=== PATIENT | male | born 1960 | race African-American/Black ===

== ENCOUNTER → 2016-08-01 | Outpatient (CLI) | payer BC, MEDICARE ==
[~2016-08-01] MED LIST: AMLO5TAB2 PO; MELO-150 PO; SIMV10TA3 PO; TRIA1CAP3 PO
--- NOTE | 2016-08-01 15:50 | RAD ---
EXAM: Bilateral knees 2 views. HISTORY: Bilateral knee pain. COMPARISON: 01/31/2011. FINDINGS: No fractures are identified bilaterally. Alignment at both knees is maintained. There is no joint effusion bilaterally. There are small osteophytes along both medial compartments and the inferior aspect of both patellas. Joint spaces are maintained. IMPRESSION: 1. 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 This has progressed mildly on the right since 2010.
== END | disposition home or self-care (01) ==
LOC: RAD 12:43
PROVIDERS: ATTEND Physician Assistant Medical
DX: M17.0 Bilateral primary osteoarthritis of knee (principal); M25.561 Pain in right knee; M25.562 Pain in left knee
CPT/HCPCS: 73560

== ENCOUNTER → 2016-08-19 | Outpatient (CLI) | payer MEDICARE ==
--- NOTE | 2016-08-19 14:49 | CARD ---
APPROVED REPORT INDICATION Chest Pain Reason : Patient complained of pain PROCEDURE The patient underwent an Exercise Stress Test using the Shravan Protocol. Blood pressure, heart rate, a nd EKG were monitored. An Echocardiogram was performed by lube technician in four stages in quad fashion. At peak stress four se lected images were obtained and placed side by side with resting images for comparison. STRESS ECHO FINDINGS The resting Echocardiogram showed normal left ventricular contractility with an estimated Ejection Fr action of about 60 %. Normal augmentation of myocardial wall segments using a 16 segment model. Test Type: Exercise Stress Nurse/Tech: Sonali Dunn R.N. Test Indications: Chest pain. Cardiac History and Allergies: SEE EMR Medications: SEE EMR Medical History: SEE EMR Resting ECG: SR Resting Heart Rate: 64 bpm Resting Blood Pressure: 131/77mmHg Pretest Chest Pain: None Nurse/Tech Notes S1S2, lungs CTA, denied chest pain, SOA and dizziness. Consent: The procedure was explained to the patient in lay terms. Informed consent was witnessed. Jonathan eout was entered into [employer]. History and Stress Test performed by Sonali Dunn R.N. Stress Symptoms SOA. POST EXERCISE Reason for Termination: Reached target heart rate Target HR: 138 Max HR: 146 bpm 90% of Maximum Predicted HR: 162 bpm Exercise duration: 6:32 min:sec, 3 Stage Exercise capacity: 7.0METs Max Blood Pressure: 187/80mmHg Blood Pressure response to exercise: Normal blood pressure response during stress. Heart Rate response to exercise: Normal Chest Pain: No. Arrhythmia: No. ST Change: No. INTERPRETATION Stress EKG Conclusion: No acute changes were noted. RESTING ECG Rhythm: Sinus Arrhythmias: None Repolarization: Normal STRESS ECG Rhythm: Sinus Tachycardia Conduction: Normal Arrhythmias: None Repolarization: ST depression Mildly positive ST-Segment changes. ST-Sement Location: Inferior. Timing of ST-Segment Depression: Stress only ST-Segment Configuration: Upsloping ST-Segment Depression Amount: 2 mm Stress EKG shows mild changes suggestive of ischemia Preliminary Notification Critical Value: No <Conclusion> Mild inferolateral ST segment depression suggestive but not conclusive for ischemia. Normal resting wall motion with LVH. Stress echo with normal wall motion (although images obtained at less than maximum stress, lowering s pecificity) Average exercise capacity at 7.0 Mets.
== END | disposition home or self-care (01) ==
LOC: ECHO 12:22
PROVIDERS: ATTEND Family Medicine
DX: R07.9 Chest pain, unspecified (principal)
CPT/HCPCS: 93017; 93350